=== PATIENT | female | born 1965 | race Caucasian/White ===

== ENCOUNTER 2018-07-07 13:04 | Emergency (ER) | payer SELFPAY ==
[2018-07-07 13:05] VITALS: BP 219/90; PULSE 83; RESP 16; TEMP 35.7; O2SAT 98; BMI 52.9
--- NOTE | 2018-07-07 13:20 | ED.VISSUMM ---
- ER Visit Summary Date of Service: 07/07/18 Chief Complaint: Abdominal wall cellulitis History of Present Illness: The patient is a 53 F who has cellulitis of her abdominal wall. She thinks it spreading. She was seen at an urgent care last night and given Keflex. She states it is feeling better but the redness started to spread beyond the demarcated area. She has had no fevers today. She was exposed to MRSA recently. Physical Examination: Vital signs reviewed. Patient afebrile. She is slightly hypertensive. Her abdomen shows erythema of the ventral abdominal wall. There is no abscess. No tenderness. Test Results: None performed Emergency Department Course and Treatment: Patient will be given Bactrim to add to her Keflex. She will keep Epsom salt baths on this area. She will follow-up with her PCP Treatment Plan: She also has elevated blood pressure here. She was told to monitor this and follow-up with her PCP Disposition: Discharge Impression: Abdominal wall cellulitis This note was generated with [employer] dictation software. It may contain incorrect words, spelling, and punctuation that were not noted in review of the chart prior to signing ED Disposition - Plan for ED Patient: Chief Complaint: Cellulitis Referrals: Tushar Fontenot MD [Primary Care Provider] -
--- NOTE | 2018-07-07 13:22 | ED.DEP ---
ED Disposition - Plan for ED Patient: Disposition: Home or Assisted Living Chief Complaint: Cellulitis Instructions: Discharge Instructions for Cellulitis Prescriptions: Smz/Tmp Ds [Bactrim Ds] 1 tab PO BID #14 tab Referrals: Tushar Fontenot MD [Primary Care Provider] -
[2018-07-07 13:31] VITALS: BP 139/66
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
== END 2018-07-07 13:39 | disposition home or self-care (01) ==
PROVIDERS: Emergency Provider Emergency Medicine; Family Provider Family Medicine; PCP Family Medicine
DX: L03.311 Cellulitis of abdominal wall (principal); E11.9 Type 2 diabetes mellitus without complications; I10 Essential (primary) hypertension; Z79.82 Long term (current) use of aspirin; Z79.4 Long term (current) use of insulin; Z79.84 Long term (current) use of oral hypoglycemic drugs; Z79.899 Other long term (current) drug therapy
CPT/HCPCS: 99282

== ENCOUNTER 2023-03-30 15:32 | Emergency (ER) | payer SELFPAY ==
[2023-03-30 15:34] VITALS: BP 167/85; PULSE 56; RESP 14; TEMP 36.4; O2SAT 95; BMI 48.8
[2023-03-30 15:55] LABS: Bedside Glucose 121 mg/dL (74-106)
--- NOTE | 2023-03-30 16:10 | EX.ED.DYSGE1 ---
HPI History of Present Illness Chief Complaint: Confusion Narrative Narrative: Patient took her insulin today and then ate very little for breakfast and has not eaten since. She fell asleep which is not abnormal for her and she was hard to arouse. She was found to have a blood sugar of 50 per paramedics and was treated with a blood sugar now of over. She tells me she has no chest pain shortness of breath fevers or chills. No cough or congestion. [facility] Medical History (Updated 03/30/23 @ 16:[address] Ronny Robertson MD) Diabetes mellitus Home Medications gabapentin 300 mg capsule 300 mg PO BIDCM 12/31/13 [History Last Taken 09/23/15] metformin 1,000 mg tablet 1,000 mg PO BIDCM 12/31/13 [History Last Taken 09/23/15] duloxetine 30 mg capsule,delayed release 30 mg PO DAILY 09/23/15 [History Last Taken 09/23/15] insulin aspar prot-insulin aspart 100 unit/mL (70-30) subcutaneous pen (Novolog Mix 70-30FlexPen U-100) 60 units subcut QHS 09/23/15 [History Last Taken 09/22/15] aspirin 81 mg chewable tablet 81 mg PO DAILY 05/26/16 [History Last Taken Unknown] insulin aspar prot-insulin aspart 100 unit/mL (70-30) subcutaneous pen (Novolog Mix 70-30FlexPen U-100) 45 units SQ DAILY 05/26/16 [History Last Taken Unknown] oxycodone-acetaminophen 5 mg-325 mg tablet 1 tab PO Q4H PRN PRN Pain #12 tabs 11/20/16 [Rx Last Taken Unknown] Lisinopril/Hydrochlorothiazide [Zestoretic 20/12.5 Tablet] 1 tab PO DAILY 07/07/18 [History Last Taken Unknown] amlodipine 5 mg tablet 5 mg PO DAILY 07/07/18 [History Last Taken Unknown] sulfamethoxazole 800 mg-trimethoprim 160 mg tablet 1 tab PO BID #14 tabs 07/07/18 [Rx Last Taken Unknown] Allergy/AdvReac Type Severity Reaction Status Date / Time adhesive Allergy Hives Verified 03/30/23 15:34 Social History Smoking Status: Never smoker ROS ROS ED ROS Narrative General: No fever Eyes: No visual changes ENT: No upper airway congestion, normal voice Neck: No neck pain Cardiovascular: No chest pain Respiratory: No shortness of breath or cough Gastrointestinal: No abdominal pain, nausea vomiting or diarrhea Genitourinary: No dysuria Musculoskeletal: Denies myalgias no difficulty with ambulation Skin: No rash Neurological: No memory loss, confusion or any focal weakness EXAM Physical Exam Narrative Exam Narrative: Physical exam General: Well nourished, Well developed, No Acute Distress Head: Normocephalic, Atraumatic Eyes: Conjunctiva not pale ENT: Moist mucous membranes Neck: Supple, Nontender, No lymphadenopathy Cardiovascular: Regular rate, Regular rhythm Respiratory: No distress, CTA bilaterally Abdomen: Soft, Nontender, Nondistended Back: Nontender, Normal Inspection. Negative for: CVA tenderness Extremities: Nontender, No edema Skin: Normal color, No rash Neurological: Alert, Normal Strength, Normal Sensation Psychological: Normal affect Const Vital Signs: 03/30/23 15:34 Temperature 97.6 F L Temperature Source Temporal Pulse Rate 56 L Respiratory Rate 14 Blood Pressure 167/85 H Blood Pressure Mean 112 Pulse Ox 95 Oxygen Delivery Method Room Air MDM MDM MDM Narrative Medical decision making narrative: Patient's work-up is unremarkable he appears well. She is given food in the ED she is retested and her blood sugar remains normal. She is counseled about using insulin and eating. There is no signs or symptoms of an infection at this time. She has slight leukocytosis which is likely reactive. I believe she can safely discharged. I do not believe she meets admission criteria. Lab Data Labs: Laboratory Results - last 24 hr 03/30/23 03/30/23 15:36 16:07 WBC 11.9 H RBC 4.61 Hgb 11.3 L Hct 37.6 MCV 81.6 MCH 24.5 L MCHC 30.1 L RDW Std Deviation 55.7 H RDW Coeff of Jas 18.7 H Plt Count 323 MPV 9.8 Immature Gran % (Auto) 0.700 Neut % (Auto) 83.2 H Lymph % (Auto) 8.6 L Martin % (Auto) 6.2 Eos % (Auto) 1.0 Baso % (Auto) 0.3 Absolute Neuts (auto) 9.9 H Absolute Lymphs (auto) 1.02 Nucleated RBC % 0 Sodium 138 Potassium 3.9 Chloride 107 Carbon Dioxide 26.0 Anion Gap 5 BUN 24 H Creatinine 0.77 Estim Creat Clear Calc 69.61 Est GFR (MDRD) Af Amer 99 Est GFR (MDRD) Non-Af 81 BUN/Creatinine Ratio 31.0 H Glucose 87 Calcium 8.5 Total Bilirubin 0.20 AST 15 ALT 23 Alkaline Phosphatase 77 Total Protein 6.5 Albumin 3.2 Globulin 3.3 Albumin/Globulin Ratio 1.0 POC Glucose 121 H Discharge Plan Triage Chief Complaint: Confusion ED Provider: Ronny Robertson Dx/Rx/DC Orders Clinical Impression: Uncontrolled hypertension, Hypoglycemia, Chronic back pain Instructions: Hypoglycemia (Low Blood Sugar) Prescriptions: No Action metformin 1,000 MG tablet 1,000 mg PO BIDCM Patient Comments: DIABETES gabapentin 300 MG capsule 300 mg PO BIDCM Patient Comments: NERVE PAIN insulin asp prt-insulin aspart [Novolog Mix 70-30FlexPen U-100] 100 UNITS/ML insulin pen 60 units subcut QHS Patient Comments: BLOOD SUGAR duloxetine 30 MG capsule 30 mg PO DAILY insulin asp prt-insulin aspart [Novolog Mix 70-30FlexPen U-100] 100 UNITS/ML insulin pen 45 units SQ DAILY aspirin 81 MG tablet,chewable 81 mg PO DAILY oxycodone-acetaminophen 1 TABLET tablet 1 tab PO Q4H PRN PRN (Reason: Pain) Qty: 12 0RF sulfamethoxazole-trimethoprim 1 TABLET tablet 1 tab PO BID Qty: 14 0RF amlodipine 5 MG tablet 5 mg PO DAILY Patient Comments: Take 1 tablet by mouth once daily. Lisinopril/Hydrochlorothiazide [Zestoretic 20/12.5 Tablet] 1 TABLET tablet 1 tab PO DAILY Primary Care Provider: Tushar Fontenot Referrals: Tushar Fontenot MD [Primary Care Provider] - 3-5 Days Disposition Disposition: Home, Self Care
[2023-03-30 16:14] LABS: Absolute Lymphocyte Count 1.02 X10^3/uL (0.83-4.51); Absolute Neutrophil Count 9.9 X10^3/uL (2.0-7.7); Basophil# 0.03 X10^3/uL; Basophil% 0.3 % (0-1); Eosinophil# 0.12 X10^3/uL; Hematocrit 37.6 % (37-47); Hemoglobin 11.3 g/dL (12.0-15.0); Lymphocyte # 1.02 X10^3/ul (0.83-4.51); Lymphocyte % 8.6 % (19-41); Mean Corp Hgb Conc 30.1 g/dL (32-36); Mean Corpuscular Hgb 24.5 pg (27.0-32.0); Mean Corpuscular Volume 81.6 fL (81-99); Mean Platelet Vol. 9.8 fl (6.2-12.0); Monocyte# 0.74 X10^3/uL; Monocyte% 6.2 % (0-10); NRBC Flagged by Analyzer 0 % (0-5); Neutrophil # 9.89 X10^3/uL (2.7-7.7); Neutrophil % 83.2 % (47-70); Platelet Count 323 K/mm3 (150-450); RBC Distribution Width CV 18.7 % (11.6-14.6); RBC Distribution Width SD 55.7 fl (35.1-43.9); Red Blood Count 4.61 M/mm3 (4.2-5.4); White Blood Count 11.9 K/mm3 (4.4-11.0)
[2023-03-30 16:33] LABS: AST(SGOT) 15 U/L (15-37); Alanine Aminotransfer ALT/SGPT 23 U/L (13-56); Albumin, Serum 3.2 g/dL (3.2-5.0); Alkaline Phosphatase 77 U/L (45-117); Anion Gap 5 (5-15); BUN 24 mg/dL (7-18); Calcium,Total 8.5 mg/dL (8.5-10.1); Chloride 107 mmol/L (98-107); Creatinine, Serum 0.77 mg/dL (0.55-1.02); EST Glomerular Filtration Rate 81 mL/min (>60); Est Glom Filt Rate - Afr Amer 99 mL/min (>60); Estimated Creatinine Clearance 69.61 ml/min; Globulin 3.3 g/dL (2.2-4.2); Glucose 87 mg/dL (74-106); Potassium 3.9 mmol/L (3.5-5.1); Protein, Total 6.5 g/dL (6.4-8.2); Sodium Level 138 mmol/L (136-145)
[2023-03-30 17:01] VITALS: BP 159/80; PULSE 55; RESP 17; O2SAT 98
[2023-03-30 17:14] LABS: Bedside Glucose 52 mg/dL (74-106)
[2023-03-30 17:34] VITALS: BP 166/82; PULSE 56; RESP 15; O2SAT 99
[2023-03-30 17:35] VITALS: BP 174/90; PULSE 55; RESP 16; O2SAT 100
[2023-03-30 17:54] LABS: Bedside Glucose 88 mg/dL (74-106)
[2023-03-30 18:25] LABS: Bedside Glucose 177 mg/dL (74-106)
== END 2023-03-30 18:25 | disposition home or self-care (01) ==
PROVIDERS: Emergency Provider Emergency Medicine; PCP Family Medicine; Visit Provider Emergency Medicine
DX: E11.649 Type 2 diabetes mellitus with hypoglycemia without coma (principal); Z79.4 Long term (current) use of insulin; G89.29 Other chronic pain; I10 Essential (primary) hypertension; M54.9 Dorsalgia, unspecified; Z79.84 Long term (current) use of oral hypoglycemic drugs
CPT/HCPCS: 80053; 82962; 85025; 99285; J7030; A4216